=== PATIENT | female | born 1975 | race Caucasian/White ===

== ENCOUNTER 2017-03-14 23:57 | Emergency (ER) | payer SELFPAY ==
[2017-03-15] MEDS ORDERED: BASAGLAR K100 UNIT/1 SC (00:24)
[2017-03-15 00:32] LABS: URINE BILIRUBIN NEGATIVE (NEG); URINE BLOOD SMALL (NEG); URINE GLUCOSE (UA) LARGE (NEG); URINE KETONE NEGATIVE (NEG); URINE LEUKOCYTE ESTERASE NEGATIVE (NEG); URINE NITRITE NEGATIVE (NEG); URINE PROTEIN NEGATIVE (NEG)
[2017-03-15 00:34] LABS: URINE APPEARANCE CLEAR; URINE COLOR YELLOW
[2017-03-15 00:37] LABS: URINE EPITHELIAL CELLS 0-1 /[HPF] (0-10); URINE RBC 0-2 /[HPF] (0-5); URINE WBC 0 /[HPF] (0-5)
[2017-03-15 01:03] LABS: KETONE-BETA (WHOLE BLOOD) 0.2 mmol/L (0.0-0.6)
[2017-03-15 01:09] LABS: BASO % 0.7 % (0-2); BASO ABSOLUTE COUNT 0.1 tho/cmm (0.0-0.2); EOS % 1.6 % (0-7); EOSINOPHIL ABSOLUTE COUNT 0.1 tho/cmm (0.0-0.7); HCT-HEMATOCRIT 37.8 % (34.0-49.0); HGB-HEMOGLOBIN 12.6 gm/dl (12.0-15.5); IMMATURE GRANULOCYTES ABSOLUTE 0.01 tho/cmm (0-0.03); IMMATURE GRANULOCYTES PERCENT 0.1 % (0-0.3); LYMPH % 41.1 % (20-45); MCH (MEAN CORPUSCULAR HGB) 24.4 pg (28.0-32.0); MCHC MEAN CORPUSCULAR HGB CONC 33.3 % (32.0-36.0); MCV (MEAN CELL VOLUME) 73.1 fl (82.0-96.0); MEAN PLATELET VOLUME 10.7 cmc (9.4-12.4); MONOCYTE ABSOLUTE COUNT 0.4 tho/cmm (0.0-1.2); NEUTROPHIL ABSOLUTE COUNT 3.8 tho/cmm (1.6-8.0); NEUTROPHIL-AUTOMATED 3.8 tho/cmm (1.6-8.0); NEUTROPHILS % 51.5 % (40-80); PLATELET COUNT 276 tho/cmm (150-450); RED BLOOD COUNT 5.17 mil/cmm (4.00-5.20); WHITE BLOOD COUNT 7.3 tho/cmm (4.0-10.0)
[2017-03-15 01:21] LABS: ANION GAP 14 mmol/L (0-20); BLOOD UREA NITROGEN 14 mg/dl (6-24); CALCIUM 9.7 mg/dl (8.5-10.5); CARBON DIOXIDE-VENOUS 25 mmol/L (22-32); CHLORIDE 105 mmol/l (96-110); CREATININE 0.66 mg/dl (0.50-1.10); GLUCOSE 351 mg/dL (70-110); SODIUM 140 mmol/L (135-145); eGFR VALUE FOR BLACK >90 mL/Min
[2017-03-15 01:25] LABS: POTASSIUM 3.9 mmol/L (3.7-5.1)
== END 2017-03-15 01:48 ==
LOC: EDMED 23:57
PROVIDERS: Emergency Medicine
DX: E10.65 Type 1 diabetes mellitus with hyperglycemia (principal); E86.0 Dehydration; Z79.4 Long term (current) use of insulin
CPT/HCPCS: J1815; J7030